=== PATIENT | female | born 1970 | race African-American/Black ===

== ENCOUNTER 2024-08-26 15:07 | Inpatient (IN) | payer OTHER ==
[2024-08-26 16:36] VITALS: BMI 23.3
[2024-08-26] MEDS ORDERED: BENZONATATE 200 MG CAPSULE PO PRN (17:01)
[2024-08-26] MEDS ORDERED: ONDANSETRON *ODT* 4 MG TABLET SL PRN (17:01)
[2024-08-26] MEDS ORDERED: BENZOCAINE/MENTHOL (CHLORASEPTIC ) LOZENGE MM PRN (17:01)
[2024-08-26] MEDS ORDERED: ACETAMINOPHEN 325 MG TABLET (FP) PO PRN (17:01)
[2024-08-26] MEDS ORDERED: POLYETHYLENE GLYCOL (HEALTHYLAX) 3350 17 GM PACKET PO PRN (17:01)
[2024-08-26] MEDS ORDERED: LOPERAMIDE HCL 2 MG CAPSULE PO PRN (17:01)
[2024-08-26] MEDS ORDERED: NALOXONE (NARCAN) HCL 4 MG/0.1 ML SPRAY NS PRN (17:01)
[2024-08-26] MEDS ORDERED: MAGNESIUM HYDROX 2400MG/30ML ORAL SUSPENSION 30 ML CUP PO PRN (17:01)
[2024-08-26] MEDS ORDERED: MAG HYDROX/AL HYDROX/SIMETH 30 ML UNIT-DOSE CUP PO PRN (17:01)
[2024-08-26] MEDS ORDERED: guaiFENesin 600 MG TABLET.ER (FP) PO PRN (17:01)
[2024-08-26] MEDS ORDERED: DICYCLOMINE HCL 10 MG CAPSULE PO PRN (17:01)
[2024-08-26] MEDS ORDERED: cloNIDine HCL 0.1 MG TABLET PO ONE (17:03)
[2024-08-26] MEDS ORDERED: cloNIDine HCL 0.1 MG TABLET ONE (19:39)
[2024-08-26] MEDS: cloNIDine HCL 0.1 MG TABLET PO ONE (19:54)
[2024-08-26] MEDS: MELATONIN 5 MG TABLETS PO SCH (23:16)
[2024-08-26] MEDS: METHOCARBAMOL 500 MG TABLET PO PRN (23:16)
[2024-08-26] MEDS: hydrOXYzine PAMOATE 25 MG CAPSULE (FP) PO PRN (23:17)
[2024-08-26] MEDS: THIAMINE 100 MG TABLET PO SCH (23:17)
[2024-08-27] MEDS ORDERED: LORazepam 1 MG TABLET PO PRN (07:35)
[2024-08-27] MEDS: amLODIPine BESYLATE 10 MG TABLET (FP) PO ONE (07:54)
[2024-08-27] MEDS ORDERED: methaDONE HCL 10 MG TABLET PO ONE (09:00)
[2024-08-27] MEDS: PRENATAL VITAMINS W/ FOLIC ACID TABLET (FP) PO SCH (10:45)
[2024-08-27] MEDS: LORazepam 2 MG TABLET PO SCH (10:45)
[2024-08-27 16:57] LABS: CHLORIDE 106 mmol/L (98-107); HEMATOCRIT 39.1 % (32.4-45.2); HEMOGLOBIN 12.2 GM/dL (10.7-15.3); MCH 27.8 pg (25.7-33.7); MCHC 31.2 g/dl (32.0-36.0); MEAN PLT VOLUME 7.2 fl (7.5-11.1); PLATELET COUNT 393 10^3/uL (134-434); POTASSIUM 4.4 mmol/L (3.5-5.1); RBC 4.39 M/mm3 (3.60-5.2); SODIUM 142 mmol/L (136-145); WHITE BLOOD COUNT 2.3 K/mm3 (4.0-10.0)
[2024-08-27 16:59] LABS: ALBUMIN 3.1 g/dl (3.4-5.0); ANION GAP 3 mmol/L (4-13); CALCIUM 9.4 mg/dL (8.5-10.1); CO2 32 mmol/L (21-32)
[2024-08-27 17:00] LABS: BLOOD UREA NITROGEN 18.1 mg/dL (7-18); GLUCOSE,RANDOM 90 mg/dL (74-106)
[2024-08-27 17:02] LABS: SGPT/ALT 18 U/L (13-61)
[2024-08-27 17:03] LABS: SGOT/AST 14 U/L (15-37)
[2024-08-27 17:04] LABS: BILIRUBIN,TOTAL 0.2 mg/dL (0.2-1); TOT PROT 6.6 g/dl (6.4-8.2)
[2024-08-27 17:05] LABS: ALK PHOS 75 U/L (45-117)
[2024-08-27 19:20] LABS: HCV DIAGNOSTIC IN-HOUSE W/RFLX NON-REACTIVE (NONREACTIVE); HIV INTERPRETATION NEGATIVE (NEGATIVE)
[2024-08-27] MEDS: QUEtiapine FUMARATE 200 MG TABLET PO SCH (22:22)
[2024-08-28] MEDS ORDERED: methaDONE HCL 10 MG TABLET PO SCH (06:00)
[2024-08-28] MEDS: amLODIPine BESYLATE 10 MG TABLET (FP) PO SCH (10:41)
[2024-08-28] MEDS: FLU VACCINE (FLULAVAL) PF 45 MCG/0.5 ML SYRINGE 2024-2025 IM ONE (11:30)
[2024-08-29] MEDS ORDERED: LORazepam 1 MG TABLET PO SCH (05:00)
[2024-08-29] MEDS: BACITRACIN 0.9 GM PACKET TP SCH (10:50)
[2024-08-29] MEDS: cloNIDine HCL 0.1 MG TABLET PO PRN (22:30)
[2024-08-30] MEDS ORDERED: LORazepam 0.5 MG TABLET PO PRN
[2024-08-30] MEDS ORDERED: LORazepam 0.5 MG TABLET PO SCH (05:00)
[2024-08-31] MEDS ORDERED: LORazepam 0.5 MG TABLET PO ONE (05:00)
[2024-09-01] MEDS: ALBUTEROL SO4 HFA INHALER IH PRN (12:16)
[2024-09-02 09:33] VITALS: RESP 16
[2024-09-03 09:14] VITALS: BP 135/84; PULSE 75; TEMP 98
== END 2024-09-03 10:48 | disposition home or self-care (01) | DRG 773 ==
LOC: YASAS 15:07 → Y6N 19:47
PROVIDERS: ADMIT Allergy & Immunology; ATTEND Allergy & Immunology
PROC: HZ2ZZZZ Detoxification Services for Substance Abuse Treatment (ICD-10-PCS; principal; 2024-08-26)
DX: F10.230 Alcohol dependence with withdrawal, uncomplicated (principal); F11.20 Opioid dependence, uncomplicated; F14.20 Cocaine dependence, uncomplicated; F17.213 Nicotine dependence, cigarettes, with withdrawal; F19.282 Other psychoactive substance dependence with psychoactive substance-induced sleep disorder; F19.280 Other psychoactive substance dependence with psychoactive substance-induced anxiety disorder; F19.24 Other psychoactive substance dependence with psychoactive substance-induced mood disorder; F31.9 Bipolar disorder, unspecified; F90.9 Attention-deficit hyperactivity disorder, unspecified type; I10 Essential (primary) hypertension; J45.20 Mild intermittent asthma, uncomplicated; E11.9 Type 2 diabetes mellitus without complications; Z59.00 Homelessness unspecified
CPT/HCPCS: 36415; 80053; 80305; 80307; 85027; 86780; 86803; 87389; 90656; 93005; 93010; G0008